=== PATIENT | male | born 1980 | race Caucasian/White ===

== ENCOUNTER 2016-11-20 07:35 | Emergency (ER) | payer MEDICAID ==
[~2016-11-20] VITALS: Ht 165.1 cm; Wt 61.1 kg
[~2016-11-20 07:35] MED LIST: BUPR-173 PO; BUPR-86 PO; ENAL20TA PO; HALO5TAB5 PO; LISI-170 PO; LORA2TAB99 PO; OLAN10TA9 PO; OLAN5TAB9 PO; QUET200T4 PO; QUET25TA PO; RANI150T8 PO
[2016-11-20] MEDS ORDERED: LISI-170 PO (07:57)
[2016-11-20] MEDS ORDERED: ONDANSETRON 2MG/ML, 2ML ONE (08:26)
[2016-11-20] MEDS ORDERED: HYDROmorphone 1 MG/ML, 1ML ONE ×2 (08:26→10:05)
[2016-11-20] MEDS: HYDROmorphone 1 MG/ML, 1ML IVPush PRN ×2 (08:27→10:07)
[2016-11-20] MEDS ORDERED: ONDANSETRON 2MG/ML, 2ML IVPush ONE (08:30)
[2016-11-20] MEDS ORDERED: SODIUM CHLORIDE FLUSH 10ML SYR IVF ONE (08:30)
[2016-11-20] MEDS ORDERED: KETAMINE 10 MG/ML, 20ML ONE (09:19)
[2016-11-20] MEDS ORDERED: ETOMIDATE 20 MG/10 ML IVPush ONE (09:30)
[2016-11-20] MEDS ORDERED: ETOMIDATE 20 MG/10 ML ONE (09:39)
[2016-11-20 11:04] VITALS: BP 184/96
== END 2016-11-20 11:07 | disposition home or self-care (01) ==
LOC: ED 09:18
DX: S43.015A Anterior dislocation of left humerus, initial encounter (principal); E87.6 Hypokalemia; I10 Essential (primary) hypertension; F32.9 Major depressive disorder, single episode, unspecified; X58.XXXA Exposure to other specified factors, initial encounter; Y93.89 Activity, other specified; Y92.410 Unspecified street and highway as the place of occurrence of the external cause; Y99.8 Other external cause status
CPT/HCPCS: 23650; 73030; 96375; 96376; 99152; 99153; 99285; J1170; J2405

== ENCOUNTER 2017-01-24 09:21 | Emergency (ER) | payer MEDICAID ==
[~2017-01-24] VITALS: Ht 165.1 cm; Wt 61.5 kg
[2017-01-24] MEDS ORDERED: LIDOCAINE 1%, 20ML ONE (09:54)
[2017-01-24] MEDS ORDERED: BUPIVACAINE 0.25% ONE (09:54)
[2017-01-24] MEDS ORDERED: HYDROcodone/APAP 5/325 TABLET PO ONE (10:00)
[2017-01-24] MEDS ORDERED: BUPIVACAINE 0.25% INFIL ONE (10:00)
[2017-01-24] MEDS ORDERED: LIDOCAINE 1%, 20ML SQ ONE (10:00)
[2017-01-24] MEDS ORDERED: HYDROcodone/APAP 5/325 TABLET ONE (10:04)
[2017-01-24] MEDS ORDERED: ETOMIDATE 20 MG/10 ML IVPush ONE ×2 (11:00→12:00)
[2017-01-24] MEDS ORDERED: ETOMIDATE 20 MG/10 ML ONE (11:04)
[2017-01-24] MEDS ORDERED: PROPOFOL 100 ML IV ONE (11:40)
[2017-01-24] MEDS ORDERED: PROPOFOL 10 MG/ML, 20ML IVPush ONE (12:00)
[2017-01-24 12:30] VITALS: BP 137/76
== END 2017-01-24 13:03 | disposition home or self-care (01) ==
LOC: ED 09:51
DX: S43.005A Unspecified dislocation of left shoulder joint, initial encounter (principal); I10 Essential (primary) hypertension; F10.129 Alcohol abuse with intoxication, unspecified; Y90.9 Presence of alcohol in blood, level not specified; X58.XXXA Exposure to other specified factors, initial encounter; Y93.89 Activity, other specified; Y92.89 Other specified places as the place of occurrence of the external cause; Y99.8 Other external cause status
CPT/HCPCS: 23650; 99152; 99153

== ENCOUNTER 2017-02-01 05:48 | Emergency (ER) | payer MEDICAID ==
[~2017-02-01] VITALS: Ht 170.2 cm; Wt 68.0 kg
[2017-02-01 05:56] VITALS: BP 135/88
[2017-02-01] MEDS ORDERED: ONDANSETRON ODT 4 MG PO ONE (06:00)
[2017-02-01] MEDS ORDERED: HYDROmorphone 1 MG/ML, 1ML IM ONE (06:00)
[2017-02-01] MEDS ORDERED: ONDANSETRON ODT 4 MG ONE (06:02)
[2017-02-01] MEDS ORDERED: HYDROmorphone 1 MG/ML, 1ML ONE (06:02)
[2017-02-01] MEDS ORDERED: SODIUM CHLORIDE FLUSH 10ML SYR IVF PRN (07:00)
[2017-02-01] MEDS ORDERED: ETOMIDATE 20 MG/10 ML IV ONE (07:00)
[2017-02-01] MEDS ORDERED: ETOMIDATE 20 MG/10 ML ONE (07:09)
== END 2017-02-01 08:55 | disposition home or self-care (01) ==
LOC: ED 06:16
DX: S43.005A Unspecified dislocation of left shoulder joint, initial encounter (principal); I10 Essential (primary) hypertension; F15.10 Other stimulant abuse, uncomplicated; Z87.891 Personal history of nicotine dependence; X58.XXXA Exposure to other specified factors, initial encounter; Y93.89 Activity, other specified; Y92.89 Other specified places as the place of occurrence of the external cause; Y99.8 Other external cause status
CPT/HCPCS: 23650; 73030; 96372; 96374; 99152; 99153; 99285; J1170; Q0162

== ENCOUNTER 2017-02-15 22:27 | Emergency (ER) | payer MEDICAID ==
[~2017-02-15] VITALS: Ht 165.1 cm; Wt 59.6 kg
[2017-02-15 23:21] LABS: DAU SCREEN DISCLAIMER
[2017-02-15] MEDS ORDERED: LORazepam 1MG TABLET PO ONE (23:30)
[2017-02-15 23:43] LABS: BLOOD UREA NITROGEN 15 mg/dL (7-18)
[2017-02-15 23:44] LABS: ACETAMINOPHEN < 2 mcg/mL (10-30)
[2017-02-15] MEDS ORDERED: LORazepam 1MG TABLET ONE (23:57)
[2017-02-15] MEDS ORDERED: POTASSIUM CHLORIDE 20 MEQ TAB.ER.PRT ONE (23:57)
[2017-02-16] MEDS ORDERED: POTASSIUM CHLORIDE 20 MEQ TAB.ER.PRT PO ONE
[2017-02-16 01:20] VITALS: BP 143/94
== END 2017-02-16 01:40 | disposition home or self-care (01) ==
LOC: ED 02-16 01:27
DX: R45.851 Suicidal ideations (principal); F41.1 Generalized anxiety disorder; F15.10 Other stimulant abuse, uncomplicated; I10 Essential (primary) hypertension; F32.9 Major depressive disorder, single episode, unspecified; F20.9 Schizophrenia, unspecified
CPT/HCPCS: 36415; 80048; 80307; 80329; 82040; 85025; 99284; G0480

== ENCOUNTER 2017-03-15 04:17 | Emergency (ER) | payer MEDICAID ==
[~2017-03-15] VITALS: Ht 165.1 cm; Wt 56.4 kg
[~2017-03-15 04:17] MED LIST changes: +LISI2.5T PO
[2017-03-15] MEDS ORDERED: SODIUM CHLORIDE 0.9% 1,000ML IVBOLUS ONE (05:00)
[2017-03-15] MEDS ORDERED: HYDROmorphone 2 MG/ML, 1ML ONE (05:07)
[2017-03-15] MEDS ORDERED: HYDROmorphone 1 MG/ML, 1ML IM ONE (05:30)
[2017-03-15] MEDS ORDERED: KETAMINE 10 MG/ML, 20ML ONE ×2 (05:44→05:53)
[2017-03-15] MEDS ORDERED: KETAMINE 10 MG/ML, 20ML IV SCH (05:47)
[2017-03-15] MEDS ORDERED: KETAMINE 10 MG/ML, 20ML IM SCH (06:00)
[2017-03-15] MEDS ORDERED: KETAMINE 100 MG/ML, 5ML IM SCH (06:00)
[2017-03-15] MEDS ORDERED: PROPOFOL 10 MG/ML, 20ML ONE (09:00)
[2017-03-15] MEDS ORDERED: KETAMINE 100 MG/ML, 5ML IV ONE (11:33)
[2017-03-15] MEDS ORDERED: PROPOFOL 10 MG/ML, 20ML IVPush ONE (12:00)
[2017-03-15 14:43] VITALS: BP 161/110
== END 2017-03-15 14:45 | disposition home or self-care (01) ==
LOC: ED 04:36
DX: S43.085A Other dislocation of left shoulder joint, initial encounter (principal)
CPT/HCPCS: 23650; 73020; 73030; 96372; 99152; 99153; 99285; J1170; J2704

== ENCOUNTER 2017-03-31 05:53 | Emergency (ER) | payer MEDICAID ==
[~2017-03-31] VITALS: Ht 165.1 cm; Wt 55.6 kg
[2017-03-31] MEDS ORDERED: OXYcodone/APAP 5/325MG TABLET PO ONE (07:30)
[2017-03-31] MEDS ORDERED: OXYcodone/APAP 5/325MG TABLET ONE (07:45)
[2017-03-31 07:47] VITALS: BP 141/97
== END 2017-03-31 08:59 | disposition left against medical advice (07) ==
LOC: ED 06:16
DX: M24.419 Recurrent dislocation, unspecified shoulder (principal); I10 Essential (primary) hypertension; F17.210 Nicotine dependence, cigarettes, uncomplicated; Z91.14 Patient's other noncompliance with medication regimen
CPT/HCPCS: 29105

== ENCOUNTER 2017-04-22 02:21 | Emergency (ER) | payer MEDICAID ==
[~2017-04-22] VITALS: Ht 165.1 cm; Wt 57.1 kg
[2017-04-22] MEDS ORDERED: SERT100T PO (03:07)
[2017-04-22] MEDS ORDERED: CARB200T PO (03:08)
[2017-04-22] MEDS ORDERED: PROPOFOL 10 MG/ML, 20ML ONE ×2 (04:30→04:54)
[2017-04-22] MEDS ORDERED: PROPOFOL 10 MG/ML, 20ML IVPush ONE ×2 (04:30→06:00)
[2017-04-22 06:33] VITALS: BP 132/95
== END 2017-04-22 06:38 | disposition home or self-care (01) ==
LOC: ED 04:16
DX: S43.005A Unspecified dislocation of left shoulder joint, initial encounter (principal); I10 Essential (primary) hypertension; X58.XXXA Exposure to other specified factors, initial encounter; Y93.89 Activity, other specified; Y92.89 Other specified places as the place of occurrence of the external cause; Y99.8 Other external cause status
CPT/HCPCS: 23650; 73030; 99152; 99153; 99285; J2704

== ENCOUNTER 2017-05-06 04:07 | Emergency (ER) | payer MEDICAID ==
[~2017-05-06] VITALS: Ht 165.1 cm; Wt 55.3 kg
[~2017-05-06 04:07] MED LIST changes: +CARB200T PO; +SERT100T PO
[2017-05-06 04:08] VITALS: BP 136/88
== END 2017-05-06 05:48 | disposition left against medical advice (07) ==
LOC: ED 04:47
DX: S43.005A Unspecified dislocation of left shoulder joint, initial encounter (principal); W19.XXXA Unspecified fall, initial encounter; Y93.89 Activity, other specified; Y99.8 Other external cause status; Y92.830 Public park as the place of occurrence of the external cause
CPT/HCPCS: 23650; 99281

== ENCOUNTER 2017-06-02 15:44 | Emergency (ER) | payer MEDICAID ==
[~2017-06-02] VITALS: Ht 165.1 cm; Wt 54.0 kg
[2017-06-02] MEDS ORDERED: ETOMIDATE 20 MG/10 ML IVPush ONE (16:30)
[2017-06-02] MEDS ORDERED: SODIUM CHLORIDE FLUSH 10ML SYR IVF ONE (16:30)
[2017-06-02] MEDS ORDERED: ETOMIDATE 20 MG/10 ML ONE (16:41)
[2017-06-02] MEDS ORDERED: PROPOFOL 10 MG/ML, 20ML ONE (16:53)
[2017-06-02] MEDS ORDERED: HYDROcodone/APAP 5/325 TABLET ONE (17:20)
[2017-06-02] MEDS ORDERED: HYDROcodone/APAP 5/325 TABLET PO ONE (17:30)
[2017-06-02 18:03] VITALS: BP 145/91
== END 2017-06-02 18:11 | disposition home or self-care (01) ==
LOC: ED 17:59
DX: S43.085A Other dislocation of left shoulder joint, initial encounter (principal); I10 Essential (primary) hypertension; F20.9 Schizophrenia, unspecified; X58.XXXA Exposure to other specified factors, initial encounter; Y93.89 Activity, other specified; Y99.8 Other external cause status; Y92.89 Other specified places as the place of occurrence of the external cause
CPT/HCPCS: 23650; 99152; 99153